=== PATIENT | female | born 1985 | race Two or more races ===

== ENCOUNTER 2018-12-20 15:30 | Emergency (ER) | payer BC ==
[~2018-12-20] VITALS: Ht 152.4 cm; Wt 56.7 kg
--- NOTE | 2018-12-20 15:35 | NUR ---
SEVERO RODRIGUEZ AT BEDSIDE FOR MSE.
[2018-12-20] MEDS ORDERED: ONDANSETRON 4 MG/2 ML VIAL ONE ×2 (15:59→16:00)
[2018-12-20] MEDS ORDERED: IV NORMAL SALINE 1000 ML BAG IV ONE (16:00)
[2018-12-20] MEDS ORDERED: ONDANSETRON 4 MG/2 ML VIAL IV ONE (16:00)
[2018-12-20 16:06] LABS: BASOPHILS % (AUTO) 0.3 % (0.0-2.0); EOSINOPHILS % (AUTO) 0.4 % (0.0-7.0); HEMATOCRIT 43.7 % (31.2-41.9); HEMOGLOBIN 14.5 g/dL (10.9-14.3); LYMPHOCYTES # (AUTO) 0.5 K/uL (20.0-40.0); LYMPHOCYTES % (AUTO) 8.7 % (20.5-51.5); MEAN CORPUSCULAR HEMOGLOBIN 32.3 uug (24.7-32.8); MEAN CORPUSCULAR HGB CONC 33 g/dL (32.3-35.6); MEAN CORPUSCULAR VOLUME 97.6 fL (75.5-95.3); MONOCYTES # (AUTO) 0.6 K/uL (2.0-10.0); MONOCYTES % (AUTO) 9.6 % (0.0-11.0); NEUTROPHILS # (AUTO) 5.1 K/uL (1.8-8.9); PLATELET COUNT (AUTO) 157 K/uL (179-408); RED BLOOD CELL COUNT(AUTO) 4.48 MIL/uL (3.63-4.92); WHITE BLOOD COUNT (AUTO) 6.3 K/uL (3.8-11.8)
[2018-12-20 16:13] LABS: CREATININE 0.7 mg/dL (0.6-1.3); POTASSIUM 3.8 mmol/L (3.5-5.1)
[2018-12-20 16:19] LABS: BILIRUBIN,DIRECT 0.2 mg/dL (0.0-0.2); BILIRUBIN,TOTAL 0.3 mg/dL (0.2-1.0)
[2018-12-20 16:51] LABS: *URINE HCG, QUAL NEGATIVE (NEGATIVE)
[2018-12-20] MEDS ORDERED: PROCHLORPERAZINE EDISYLATE 10 MG/2 ML VIAL IV ONE (17:00)
[2018-12-20] MEDS ORDERED: PROCHLORPERAZINE EDISYLATE 10 MG/2 ML VIAL ONE (17:02)
--- NOTE | 2018-12-20 17:25 | NUR ---
SEVERO RODRIGUEZ AT BEDSIDE FOR PT UPDATE.
--- NOTE | 2018-12-20 17:50 | NUR ---
Patient discharged to home in stable conditon. Written and verbal after care instructions given. Patient verbalizes understanding of instructions. ALL BELONGINGS W/ PT. PT SELF-AMBULATED W/O DIFFICULTY. 20G IV ACCESS IN RAC REMOVED PRIOR TO D/C - INNER CANNULA INTACT.
[2018-12-20 17:51] VITALS: BP 106/70
== END 2018-12-20 17:52 | disposition home or self-care (01) ==
LOC: ER 15:30
DX: R11.10 Vomiting, unspecified (principal); R19.7 Diarrhea, unspecified
CPT/HCPCS: 36415; 80048; 80076; 84703; 85025; 96361; 96374; 96375; 99283; J0780; J2405 ×2; A4663; J7030